=== PATIENT | female | born 1950 | race Caucasian/White ===

== ENCOUNTER 2017-01-03 06:32 | Day surgery (SDC) | payer OTHER ==
[~2017-01-03] VITALS: Ht 165.1 cm; Wt 69.4 kg
[2017-01-03] VITALS (12 sets, daily range): BP systolic 122–151; BP diastolic 58–77; PULSE 71–96; RESP 10–21; O2SAT 93–99
[~2017-01-03 06:32] MED LIST: AMLO10TA3 PO; ASPI325T32 PO; AZEL137S11 NS; CETI10CA PO; CHLO50TA PO; CLOP75TA3 PO; COLE625T PO; Dexamethasone Inj 20 MG in 0.9% Sodium Chloride-Pha MIX 50 ML IV ONE; EPHEDrine Sulfate 50 mg/mL Inj IVPUSH PRN; FISH1CAP16 PO; FLUT16SP NS; HYDROmorphone 1 mg/mL Inj IVPUSH PRN; IPRA3AMP IH; LISI40TA PO; Lactated Ringer's 1,000 ML IV SCH; Lactated Ringer's 500 ML IV PRN; MOME13HF IH; MULT-1018 PO; MetoCLOpramide 5 mg/mL 2 mL Inj IVPUSH PRN; NITR0.4T SL; Ondansetron 2 mg/mL 2 mL Inj IVPUSH PRN; PANT40TA2 PO; PRED5TAB55 PO; RANI300C PO; TIOT4MIS5 IH; TRAM50TA2 PO; TRAZ-115 PO; VENL75CA95 PO; fentaNYL-PF 50 mCg/mL 2 mL Inj IVPUSH PRN
[2017-01-03] MEDS ORDERED: Ondansetron 2 mg/mL 2 mL Inj ONE (06:33)
[2017-01-03] MEDS ORDERED: MetoCLOpramide 5 mg/mL 2 mL Inj ONE (06:33)
[2017-01-03] MEDS ORDERED: Propofol 10,000 mCg/mL 20 mL Inj ONE (06:33)
[2017-01-03] MEDS ORDERED: Succinylcholine Chloride 20 mg/mL 5 mL Inj ONE (06:33)
[2017-01-03] MEDS ORDERED: Dexamethasone 4 mg/mL Inj ONE (06:33)
[2017-01-03] MEDS ORDERED: fentaNYL-PF 50 mCg/mL 2 mL Inj ONE (06:33)
[2017-01-03] MEDS ORDERED: DEXAMETHASONE IV ONE (07:15)
[2017-01-03] MEDS ORDERED: DEXTROSE 5% IV ONE (07:15)
[2017-01-03] MEDS ORDERED: Lactated Ringer's 1,000 ML IV ONE ×3 (07:42→10:50)
--- NOTE | 2017-01-03 08:46 | PCM.HPANE ---
Patient Data Surgeon Admitting Provider: Attending Provider:Nik Meyers MD Primary Care Physician:Darell Jordan MD Other Provider:,Brevig [facility] Anesthesia Reason for Visit Deviated Septum,Turbinate Hypertrophy,Sinusitis Ht/WT & BMI Height (Feet): 5 Height (Inches): 5.00 Weight (Kilograms): 69.400 Body Mass Index 25.00 Allergies Uncoded Allergies: LACTOSE AND SOY INTOLERANT (Allergy, Unknown, 12/27/16) STATINS (Allergy, Unknown, myalgias, 12/27/16) Past Anesthesia History Anesthesia History: Positive for:: Difficult Intubation (cervical neck fusion- can't "crank neck" never had issues with anes), Denies:: Abnormal Airway, Anesthesia Reactions (tends to nausea), Fam Anesthesia Reaction, Fam Malignant Hypertherm, Malignant Hyperthermia Diabetes History Hx Diabetes?: No MRSA MRSA: Yes (after one surgery- breast site) Medications Blood Thinner: Aspirin, Plavix Hypertension Medication: Yes Home Meds Incl Beta Paco: No Reported Medications Cetirizine HCl (Zyrtec)10 Mg Hyapjov58 Mg PO HS #30 CAPSULE Ref 0 12/27/16 Venlafaxine ER 75 Mg Cap.er.24h75 Mg PO DAILY Ref 0 12/27/16 Trazodone 50 Mg Pvwlem71-179 Mg PO HS Ref 0 12/27/16 Tiotropium [place] (Spiriva Respimat)1.25 Mcg/Actuation Mist.inhal4 Gm IH DAILY 12/27/16 Ranitidine 300 Mg Vtttfwc682 Mg PO BID Ref 0 12/27/[address] (Protonix)40 Mg Hfofym65 Mg PO BID Ref 0 12/27/16 Clopidogrel Bisulfate (Plavix)75 Mg Ndeikc30 Mg PO DAILY 30 Days Ref 0 12/27/16 Fish Oil/Borage/Flax/Om3,6,9#1 ([place] 3-6-9 Complex Softgel)400 Mg Xcvswdb516 Mg PO DAILY 12/27/16 Nitroglycerin SL (Nitrostat)0.4 Mg Tab.subl0.4 Mg SL Q5MIN PRN For Chest Pain # 1 BOTTLE 12/27/16 Multivitamin (Multi Vitamin Daily)1 Each Tablet1 Each PO DAILY 30 Days Ref 0 12/27/16 Prednisolone (Millipred)5 Mg Tablet5 Mg PO DAILY 12/27/16 Lisinopril 40 Mg Rirwgo75 Mg PO DAILY 30 Days Ref 0 12/27/16 Ipratropium/Albuterol Sulfate (Iprat-Albut 0.5-3(2.5) mg/3 mL Inhalant Soln)3 Ml Ampul.neb3 Ml IH 4-6x daily Ref 0 12/27/16 Fluticasone Propionate (Fluticasone Propionate Nasal)16 Gm [place].susp1 [place] NS BID #16 GM Ref 0 12/27/16 Mometasone/Formoterol (Dulera 200 Mcg/5 Mcg Inhaler)13 Gm Hfa.aer.ad13 Gm IH BID 12/27/16 Chlorthalidone 50 Mg Mqtejg97 Mg PO DAILY 12/27/16 Aspirin 325 Mg Jzrzak188 Mg PO DAILY #1 BOTTLE 12/27/16 Amlodipine 10 Mg Oociyn93 Mg PO DAILY Ref 0 12/27/16 Discontinued Reported Medications Colesevelam HCl (Welchol)625 Mg Tablet6 Tab PO DAILY 12/27/16 Tramadol 50 Mg Pgfnql98 Mg PO Q4H PRN For Pain Ref 0 12/27/16 Azelastine HCl 137 Mcg/0.137 Ml [place].rrjd247 Mcg NS BID 12/27/16 History History of ENT Problems?: Yes HEENT History: Positive for:: Cataracts (bilateral ) Difficult Intubation (cervical neck fusion- can't "crank neck" never had issues with anes) Sinus Problem (current admission problem) Denies:: Abnormal Airway Dysphagia Glaucoma Hearing Problem (slight ) TMJ Denture Type: Partial- Lower Teeth Condition: Within Normal Limits Hx of Heart Problems?: Yes Cardiovascular History: Positive for:: Cardiac Surgery ([facility]- IDA 2011) Hypertension Denies:: AICD Heart Murmur Irregular Heartbeat Pacemaker Peripheral Vascular Rheumatic Fever Thrombophlebitis Valvular Heart Disease (echo, MPS ef 62%) Hx of Respiratory Problem?: Yes Respiratory History: Positive for:: Asthma Emphysema Pneumonia (gets easily, last 2005 or 2006) Use of C-PAP Machine Use of Inhalers / NEBS Denies:: COPD Dyspnea (can walk flight of stairs with no SOB) Oxygen Administration Tuberculosis Hx Neurologic Problems?: No Neurological History: Denies:: Alzheimer's Disease CVA Dementia Dizziness Headaches Multiple Sclerosis Parkinson's Disease Seizures TIA Hx of GI Problems?: Yes Hx of Problems?: No Genitourinary History: Denies:: Kidney Stones Urinary Tract Infection Female Hx: Positive for:: Problems with Breasts? (hx of breast augmentation) Denies:: Currently (hysterectomy) Skin History: Denies:: History Skin Disorders? Pressure Ulcers Hx Musculoskeletal Problems?: Yes Musculoskeletal History: Positive for:: Back Injury (cervical spinal fusion x 2.) Musculoskeletal Trauma (plate left arm/ulna) Osteoarthritis Denies:: Fibromyalgia Joint Replacement Systemic Lupus Hx of Psycho/Social Problems?: Yes Psycho Social History: Positive for:: Hx Depression Denies:: Anxiety Hx Surgeries?: Yes (breast aug, cervical neck x 2, hysterectomy, tonsil) Hx Any Other Health Problems?: Yes Other History: Denies:: Cancer Thyroid Disease History Blood Transfusions: Positive for:: Accept Blood Products? Denies:: Blood Transfuse Reaction Blood Transfusions Hx Diabetes: No Hx Alcohol Use: YesAlcoholic Drinks Per Day: 2-3 drinks weeklyHx Substance Use : NoHave You Smoked inLast 12 mo: Yes (quit one month ago, 1 pack day - wearing nicotine patch now) Stop/Bang Treated for Sleep Apnea?: Yes Do You Have a CPAP Machine?: Yes P-Blood Pressure: treated: Yes B- Body Mass Index > 35 kg/m2: No A- Age over 50: Yes N- Neck Large Circumference: No G- Gender Male: No MEGAN Risk Assessment: High Risk, =/>3 Yes Risk Assessment Category Category 1A: Patient has history of documented sleep apnea, and HAS NOT received any narcotic, sedative or anesthesia administration during this stay. Category 1B: Patient has history of documented sleep apnea, and HAS received any narcotic , sedative or anesthesia administration during this stay Category 2: Patient has SUSPECTED Obstructive Sleep Apnea, and HAS received any narcotic , sedative or anesthesia administration during this stay. Category 3: Patient has SUSPECTED Obstructive Sleep Apnea and HAS NOT received narcotic, sedative or anesthesia administration during this stay. Category 4: Outpatient in Procedural Areas with known sleep apnea or who screen positive for High Risk via the STOP/BANG questionnaire. Exam Exam Vital Signs Vital Signs Date Time Temp Pulse Resp B/P Pulse Ox O2 Delivery O2 Flow Rate FiO2 01/03/17 07:20 36 73 20 133/63 99 Room Air General Appearance: Oriented X3 HEENT/AIRWAY: MP 2 Lungs: Normal Air Movement Heart: Regular Rate/Rhythm Meds/Labs/Diagnostics Admission Meds Current Medications Lactated Ringer's (Lr) 1,000 ml @ ud STK-MED ONCE IV Last administered on 01/03t 07:42; Start 01/03/17 at 07:42; Stop 01/03/17 at 07:43; Status DC Plan Impression Patient chart reviewed, patient interviewed and anesthestic plan with risks, benefits, and alternatives discussed, and informed consent obtained. ASA Physical Status: ASA3 Severe Disease Anesthetic Plan: GA Bene/Risks/Altern/Consents: Yes HP Complete Prior to Induction: Yes Jose Monet MD January 03, 2017 08:46
[2017-01-03] MEDS ORDERED: Lidocaine 1%-Epi 1:100,000 20 mL Inj INFILTRATE ONE (09:34)
[2017-01-03] MEDS ORDERED: Bacitracin Ointment Packet TOPICAL ONE (09:34)
[2017-01-03] MEDS ORDERED: Bupivacaine-MPF 0.5% 30 mL Inj INFILTRATE ONE (09:35)
[2017-01-03] MEDS ORDERED: HYDROmorphone 0.5 mg/0.5 mL iSecure Syringe ONE (11:43)
[2017-01-03] MEDS ORDERED: HYDROcodone-APAP 5-325 mg Tablet PO ONE (12:31)
--- NOTE | 2017-01-03 21:10 | OP ---
[address] [address] OPERATIVE REPORT PATIENT: MARK MISHRA : 1950 MR#: [id number] ADMIT: 01/03/2017 JOB ID: [id number] DATE OF SURGERY: 01/03/2017 SURGEON: Nik Meyers MD PREOPERATIVE DIAGNOSIS(ES): 1. Nasal septal deviation. 2. Nasal obstruction. 3. Chronic le sinusitis primarily involving the ethmoid and maxillary sinuses. POSTOPERATIVE DIAGNOSIS(ES): 1. Nasal septal deviation. 2. Nasal obstruction. 3. Chronic le sinusitis primarily involving the ethmoid and maxillary sinuses. 4. Left ethmoid polyp identified and sent for pathologic examination. OPERATIVE PROCEDURES: 1. Septoplasty. 2. Anterior, posterior right and left ethmoid sinusotomy. 3. Right and left maxillary endoscopic sinusotomy. PROCEDURE: With the patient supine on the operating table, general orotracheal anesthesia was used. The face was prepped and draped in a sterile fashion. Mixture of Xylocaine and Marcaine were used for medial and lateral wall of the nose anesthesia and hemostasis. Afrin had been sprayed. Decadron had been used preop. Right hemitransfixion incision was made followed by right mucoperichondrial and periosteal elevation, bony cartilaginous separation, left mucoperiosteal elevation and resection of the bony cartilaginous junction region which was markedly deviated to the right back to straight perpendicular plate of ethmoid and vomer bone. The maxillary crest was resected just behind the anterior nasal spine which was left for tip support. Rachel technique was utilized to straighten and preserve the quadrangular cartilage. Left-sided fenestra was made for envelope drainage. Betadine was placed to rinse the septal envelope. 4-0 plain catgut suture was then used throughout to reappose the septal envelope and close the hemitransfixion incision. This resulted in open airways, left and right. There was enlargement of the left middle turbinate because the septum had been deviated to the right. This was partially reduced in size to gain entrance into the maxillary sinus. Thereafter, right and left endoscopic maxillary sinusotomies were performed by removing the uncinate process and enlarging the natural ostia and maxillary window markedly. Anterior ethmoid sinusotomy was performed by removing the ethmoid bulla. Posterior ethmoid was entered and this area was cleaned and opened by going to the basal lamella, both right and left. Thereafter, judicious suction cautery with Afrin was then utilized for hemostasis. 21,000 silastic sheeting was placed alongside the nasal septum and held in place with one 4-0 nylon tied anteriorly right. Lightly impregnated with Afrin Merocel sponges were then placed in both ethmoid labyrinths and a pull-out string tied beneath the nostril. Hemostasis was adequate. Procedure terminated. Patient turned over to Anesthesia for emergence from anesthetics without known complications.
--- NOTE | 2017-01-04 07:56 | PCM.ANEP1 ---
Post Anesthesia PACU Phase 1 Assessment Anesthetic Administered: GA Level of Alertness: Awake, talking Pain: No Nausea or Vomiting: No CV Function and Hydration: Yes Airway Device: Oralpharangeal Airway Lungs: Normal Air Movement PACU Phase 2 Assessment Patient Instructions Provided: N/A Jose Monet MD January 04, 2017 07:56
--- NOTE | 2017-01-04 13:50 | PATH ---
SURGICAL PATHOLOGY Attending Physician:Nik Meyers M.D CASE STATUS: Signed Out PATIENT NAME: MARK MISHRA PID: [id number] : 1950 DATE COLLECTED:01/03/2017 21:07 SPECIMEN: Sinus Polyp CLINICAL HISTORY: DEVIATED SEPTUM, TURBINATE HYPERTROPHY SINUSITIS 1). LEFT ETHMOID POLYP FINAL DIAGNOSIS: 1.LEFT ETHMOID POLYP: SINONASAL POLYP WITH MILD ACTIVE INFLAMMATION. NEGATIVE FOR DYSPLASIA AND MALIGNANCY. ICD10 J33.0 GROSS DESCRIPTION: The specimen is received in one formalin filled container labeled with the patient's name, sublabeled "left ethmoid polyp" and consists of a 0.6 x 0.5 x 0.5 CM mendoza-turpin portion of tissue. The specimen is entirely submitted in one cassette. 01/03/2017 [facility] MICRO DESCRIPTION: See diagnosis. ICD-9 CODES: CPT CODES: 1: 59022 Electronically Signed Out Urvashi Hathaway MD [facility] Pathology [facility] [address], [place] [address] Technical component performed at [facility], [facility] [address], [address]
== END 2017-01-03 23:59 | disposition home or self-care (01) ==
LOC: SAS 06:32
PROVIDERS: ATTEND Otolaryngology Facial Plastic Surgery
DX: J34.2 Deviated nasal septum (principal); J34.3 Hypertrophy of nasal turbinates; J33.0 Polyp of nasal cavity; J32.8 Other chronic sinusitis; J01.01 Acute recurrent maxillary sinusitis; J01.21 Acute recurrent ethmoidal sinusitis; J34.89 Other specified disorders of nose and nasal sinuses; I10 Essential (primary) hypertension; K21.9 Gastro-esophageal reflux disease without esophagitis; J45.909 Unspecified asthma, uncomplicated; J43.9 Emphysema, unspecified; F32.9 Major depressive disorder, single episode, unspecified; E78.00 Pure hypercholesterolemia, unspecified; R01.1 Cardiac murmur, unspecified; I25.10 Atherosclerotic heart disease of native coronary artery without angina pectoris; I48.0 Paroxysmal atrial fibrillation; I25.2 Old myocardial infarction; G47.30 Sleep apnea, unspecified; F17.210 Nicotine dependence, cigarettes, uncomplicated; Z95.5 Presence of coronary angioplasty implant and graft; Z79.82 Long term (current) use of aspirin; Z79.02 Long term (current) use of antithrombotics/antiplatelets; Z79.51 Long term (current) use of inhaled steroids
CPT/HCPCS: 30140; 30520; 31255; 31267; J0330; J1100; J1170; J2405; J2765; J3010; J7120